=== PATIENT | female | born 1995 | race Caucasian/White ===

== ENCOUNTER 2016-06-19 00:51 | Emergency (ER) | payer OTHER ==
[~2016-06-19] VITALS: Ht 180.3 cm; Wt 112.0 kg
[~2016-06-19 00:51] MED LIST: ACET1TAB40 PO; CEPH-443 PO; LOPE2CAP PO; NO MEDS
[2016-06-19 00:59] VITALS: Ht 180.3 cm; Wt 112.0 kg
[2016-06-19] MEDS ORDERED: SOD CHLORIDE 0.9% 1,000 ML IV STA (01:24)
[2016-06-19] MEDS ORDERED: ONDANSETRON 4 MG INJ IV STA (01:24)
[2016-06-19] MEDS ORDERED: KETOROLAC 30 MG INJ IV STA (01:24)
[2016-06-19] MEDS ORDERED: LOPERAMIDE 2 MG CAP PO ONE (01:30)
[2016-06-19] MEDS ORDERED: ACETAMINOPHEN 325 MG TAB PO ONE (01:30)
--- NOTE | 2016-06-19 01:33 | ERD ---
ER Documentation Chief Complaint Date/Time DATE: 06/19/16 TIME: 01:31 Chief Complaint Diarrhea x2 days. pelvic pain and fever. feeling weak HPI Patient is a 21-year-old female who presents to the ED with nonbloody diarrhea 2 days. She also complains of nonbloody nonbilious emesis today. She states that she has a decrease in appetite but is tolerating fluids. She denies headache or dizziness. Denies fevers or chills at home. Denies recent travel or change in foods. Denies abdominal pain. Denies chest pain, cough or shortness of breath or difficulty breathing. Denies leg pain or swelling. She has not taken any medication for symptoms. No other complaints. ROS All systems reviewed and are negative except as per history of present illness. Medications Home Meds Active Scripts Ondansetron (Ondansetron Odt) 4 Mg Tab.rapdis, 4 MG PO Q6H Y for NAUSEA AND/OR VOMITING, #10 TAB Prov:NEFTALY ZEPEDA PA-C 06/19/16 Acetaminophen* (Tylophen*) 500 Mg Capsule, 1 CAP PO Q6H Y for PAIN AND OR ELEVATED TEMP, #20 CAP Prov:NEFTALY ZEPEDA PA-C 06/19/16 Electrolyte,Oral (Pedialyte) 1,000 Ml Solution, 100 ML PO Q6 Y for DIARRHEA for 30 Days, ML Prov:NEFTALY ZEPEDA PA-C 06/19/16 Cephalexin* (Keflex*) 500 Mg Capsule, 500 MG PO QID for 7 Days, CAP Prov:JESUS GRAFF PA-C 02/18/16 Loperamide Hcl* (Imodium*) 2 Mg Capsule, 2 MG PO .AFTER EA LOOSE BM Y for DIARRHEA, #10 TAB Prov:DEVIN DELGADO MD 05/20/15 Acetaminophen-Codeine* (Acetaminophen-Cod #3*) 300-30 Mg Tab, 1 TAB PO Q4H Y for PAIN, #12 TAB Prov:DEVIN DELGADO MD 05/20/15 Reported Medications [No Meds] No Conflict Check 04/17/13 Allergies Allergies: Coded Allergies: No Known Drug Allergies (Verified Allergy, Mild, 05/20/15) PMhx/Soc Medical and Surgical Hx: pt denies Medical Hx, pt denies Surgical Hx History of Surgery: No Anesthesia Reaction: No Hx Neurological Disorder: No Hx Respiratory Disorders: No Hx Cardiac Disorders: No Hx Psychiatric Problems: No Hx Miscellaneous Medical Probl: Yes (ANEMIA,UTI) Hx Alcohol Use: No Hx Substance Use: No Hx Tobacco Use: No Smoking Status: Never smoker FmHx Family History: No coronary disease, No diabetes, No other Physical Exam Vitals Vital Signs Date Time Temp Pulse Resp B/P Pulse Ox O2 Delivery O2 Flow Rate FiO2 06/19/16 00:59 100.6 110 20 126/72 100 Physical Exam GENERAL: Well-developed, well-nourished female. Appears in no acute distress. HEAD: Normocephalic, atraumatic. EYES: Pupils are equally reactive bilaterally. EOMs grossly intact. No conjunctival erythema. ENT: Moist mucous membranes. No uvula deviation. No kissing tonsils. No exudates. NECK: Supple. No lymphadenopathy or thyromegaly. No meningismus. negative kernig. negative brudinski. LUNG: Clear to auscultation bilaterally. No rhonchi, wheezing, rales or coarse breath sounds. HEART: Regular rate and rhythm. No murmurs, rubs or gallops. ABDOMEN: No scars, ecchymosis or rashes noted. Soft, nontender, and nondistended. Positive bowel sounds in all four quadrants. No rebound tenderness , no guarding. (-) McBurneys point tenderness. No CVA tenderness. BACK: No midline tenderness. Extremities: Equal pulses bilaterally. No peripheral clubbing, cyanosis or edema. No unilateral leg swelling. NEUROLOGIC: Alert and oriented. Moving all four extremities. 5/5 strength in all extremities. Normal speech. Steady gait. moist mucous membranes. SKIN: Normal color. Warm and dry. No rashes or lesions. Capillary refill < 2 seconds Result Diagram: 06/19/1614406/19/16 014 Results 24 hrs Laboratory Tests Test 06/19/16 01:42 06/19/16 01:45 Bedside Urine pH (LAB) 6.0 Bedside Urine Protein (LAB) 1+ Bedside Urine Glucose (UA) Negative Bedside Urine Ketones (LAB) Negative Bedside Urine Blood 3+ Bedside Urine Nitrite (LAB) Negative Bedside Urine Leukocyte Esterase (L Negative White Blood Count 5.110^3/ul Red Blood Count 4.9910^6/ul Hemoglobin 8.4g/dl Hematocrit 30.3% Mean Corpuscular Volume 60.7fl Mean Corpuscular Hemoglobin 16.8pg Mean Corpuscular Hemoglobin Concent 27.7g/dl Red Cell Distribution Width 21.2% Platelet Count 82299^3/UL Mean Platelet Volume fl Neutrophils % 71.5% Lymphocytes % 19.9% Monocytes % 7.4% Eosinophils % 0.8% Basophils % 0.2% Nucleated Red Blood Cells % 0.0/100WBC Neutrophils # 3.710^3/ul Lymphocytes # 1.010^3/ul Monocytes # 0.410^3/ul Eosinophils # 0.010^3/ul Basophils # 0.010^3/ul Nucleated Red Blood Cells # 0.010^3/ul Sodium Level 136mmol/L Potassium Level 3.7mmol/L Chloride Level 105mmol/L Carbon Dioxide Level 22mmol/L Anion Gap 13 Blood Urea Nitrogen 9mg/dl Creatinine 0.75mg/dl Glucose Level 113mg/dl Calcium Level 8.9mg/dl Total Bilirubin 0.8mg/dl Direct Bilirubin 0.00mg/dl Indirect Bilirubin 0.8mg/dl Aspartate Amino Transf (AST/SGOT) 23IU/L Alanine Aminotransferase (ALT/SGPT) 41IU/L Alkaline Phosphatase 110IU/L Total Protein 7.9g/dl Albumin 4.3g/dl Globulin 3.60g/dl Albumin/Globulin Ratio 1.19 Lipase 40U/L Current Medications Medications (Trade) Dose Ordered Sig/Tanisha Route PRN Reason Start Time Stop Time Status Last Admin Dose Admin Sodium Chloride (NS) 1,000 ml @ 1,000 mls/hr Q1H STAT IV 06/19/16 01:24 06/19/16 02:23 DC 06/19/16 01:52 Ondansetron HCl (Zofran Inj) 4 mg ONCE STAT IV 06/19/16 01:24 06/19/16 01:27 DC 06/19/16 01:52 Ketorolac Tromethamine (Toradol) 30 mg ONCE STAT IV 06/19/16 01:24 06/19/16 01:27 DC 06/19/16 01:52 Loperamide HCl (Imodium Cap) 4 mg ONCE ONCE PO 06/19/16 01:30 06/19/16 01:31 DC 06/19/16 01:52 Acetaminophen (Tylenol Tab) 650 mg ONCE ONCE PO 06/19/16 01:30 06/19/16 01:31 DC 06/19/16 01:52 Procedures/MDM ER COURSE: I kept the patient and/or family informed of laboratory and diagnostic imaging results throughout the emergency room course. MEDICATIONS: IV fluids, Zofran, Toradol and Imodium LAB INTERPRETATION: CBC showed no evidence of systemic infection or severe anemia. CMP showed no evidence of electrolyte abnormalities, severe acidosis, alkalosis, renal failure , or liver disease. Lipase showed no evidence of acute pancreatitis. UA showed no evidence of leukocytes, nitrites or hematuria. Urine test was negative. MEDICAL DECISION MAKING: This is a 21-year-old female who presents with diarrhea 2 days. Vital signs were reviewed. Patient has a temperature of 100.9 here in the ED patient is not hypoxic. Patient is not toxic or ill-appearing. Patient did not have focal tenderness on examination. I consulted with Dr. Valles regarding this patient who advised me to order labs and IV fluids. Patient showed mild anemia but not enough for transfusion. Patient felt better after administration of medications. I reexamined and reassessed patient. Dr. Valles reviewed laboratory studies. Patient likely has viral diarrhea. Low suspicion for dehydration. Low suspicion for ACS, AAA, perforated ulcer, bowel obstruction, cholecystitis, choledocholithiasis, cholangitis, pancreatitis, hepatic abscess, appendicitis, diverticulitis, gastroenteritis, hepatitis, peptic ulcer disease, HELLP syndrome. DISCHARGE: At this time, patient is stable for discharge and outpatient management with no new complaints during the ER course. Patient was sent home with Pedialyte, Tylenol and Zofran. Patient will be discharged home with instructions to recheck for new or worsening symptoms such as fever, nausea, weakness, LOC and to follow up with primary care in the next 1-2 days. Patient was advised to return to the ER for any new or worsening symptoms. Plan was discussed and patient and/or family understands and agrees. Home instructions were given. Departure Diagnosis: Primary Impression: Diarrhea Diarrhea type: unspecified type Qualified Code: R19.7 - Diarrhea, unspecified type Condition: Stable NEFTALY ZEPEDA PA-C Jun 19, 2016 01:33
[2016-06-19 01:41] LABS: URINE BLOOD (Dip) POC 3+ (NEGATIVE)
[2016-06-19 02:00] LABS: ADD SCAN DIFF NO
[2016-06-19 02:01] LABS: ABNORMAL IP MESSAGE 1; BASOPHILS % 0.2 % (0.0-2.0); EOSINOPHILS % 0.8 % (0.0-7.0); HEMATOCRIT 30.3 % (37.0-47.0); HEMOGLOBIN 8.4 g/dl (12.0-16.0); LYMPHOCYTES % 19.9 % (15.0-51.0); MEAN CORPUSCULAR HEMOGLOBIN 16.8 pg (29.0-33.0); MEAN CORPUSCULAR HGB CONC 27.7 g/dl (32.0-37.0); MEAN CORPUSCULAR VOLUME 60.7 fl (82.0-101.0); MONOCYTE # 0.4 10^3/ul (0.3-0.9); MONOCYTES % 7.4 % (0.0-11.0); NEUTROPHIL # 3.7 10^3/ul (1.6-7.5); NEUTROPHILS % 71.5 % (39.0-77.0); PLATELET COUNT 386 10^3/UL (140-415); RED BLOOD COUNT 4.99 10^6/ul (4.20-5.40); RED CELL DISTRIBUTION WIDTH 21.2 % (11.5-14.5); WHITE BLOOD COUNT 5.1 10^3/ul (4.8-10.8)
[2016-06-19 02:23] LABS: ALBUMIN 4.3 g/dl (3.3-4.9); ALBUMIN/GLOBULIN RATIO 1.19; BILIRUBIN,INDIRECT 0.8 mg/dl (0-1.1); BILIRUBIN,TOTAL 0.8 mg/dl (0.2-1.3); CALCIUM 8.9 mg/dl (8.4-10.2); CREATININE 0.75 mg/dl (0.44-1.00); POTASSIUM 3.7 mmol/L (3.5-5.1); TOTAL PROTEIN 7.9 g/dl (6.1-8.1)
[2016-06-19] MEDS ORDERED: ELEC100080 PO (03:02)
[2016-06-19] MEDS ORDERED: ACET500C5 PO (03:03)
[2016-06-19] MEDS ORDERED: ONDA4TAB14 PO (03:03)
== END 2016-06-19 03:28 | disposition home or self-care (01) ==
LOC: FTE 00:51
DX: R19.7 Diarrhea, unspecified (principal); R10.2 Pelvic and perineal pain; R11.10 Vomiting, unspecified
CPT/HCPCS: 36415; 80053; 81003; 83690; 85025; 96374; 96375; J1885; J2405; J7030; Z7502; Z7610

== ENCOUNTER 2016-09-20 01:21 | Emergency (ER) | payer OTHER ==
[~2016-09-20] VITALS: Ht 177.8 cm; Wt 116.0 kg
[~2016-09-20 01:21] MED LIST changes: +ACET500C5 PO; +ELEC100080 PO; +ONDA4TAB14 PO
[2016-09-20 01:28] VITALS: Ht 177.8 cm; Wt 116.0 kg
[2016-09-20] MEDS ORDERED: TYL500 PO (03:08)
[2016-09-20] MEDS ORDERED: MED4DP PO (03:09)
--- NOTE | 2016-09-20 03:13 | ERD ---
ER Documentation Chief Complaint Date/Time DATE: 09/20/16 TIME: 03:11 Chief Complaint pt reports ST for 1 week HPI This is a 21-year-old female presents here with a sore throat for the last week. Patient states that sore throat is worse whenever she swallows. She denies any fevers or chills. She denies any cough or cold symptoms. Patient denies any chest pain or shortness of breath. There are no sick contacts at home. ROS 12 point review of systems was done, all negative except per HPI. Medications Home Meds Active Scripts Methylprednisolone* (Medrol* DOSE PACK) 4 Mg/Dose-Pack Tab.ds.pk, 4 MG PO . DIRECTED for 6 Days, PACKET Prov:LUPE LE 09/20/16 Acetaminophen* (Tylenol*) 500 Mg Tab, 1000 MG PO Q8H Y for PAIN AND OR ELEVATED TEMP for 3 Days, TAB Prov:LUPE LE 09/20/16 Ondansetron (Ondansetron Odt) 4 Mg Tab.rapdis, 4 MG PO Q6H Y for NAUSEA AND/OR VOMITING, #10 TAB Prov:NEFTALY ZEPEDAC 06/19/16 Acetaminophen* (Tylophen*) 500 Mg Capsule, 1 CAP PO Q6H Y for PAIN AND OR ELEVATED TEMP, #20 CAP Prov:NEFTALY ZEPEDAC 06/19/16 Electrolyte,Oral (Pedialyte) 1,000 Ml Solution, 100 ML PO Q6 Y for DIARRHEA for 30 Days, ML Prov:NEFTALY ZEPEDAC 06/19/16 Cephalexin* (Keflex*) 500 Mg Capsule, 500 MG PO QID for 7 Days, CAP Prov:JESUS GRAFFC 02/18/16 Loperamide Hcl* (Imodium*) 2 Mg Capsule, 2 MG PO .AFTER EA LOOSE BM Y for DIARRHEA, #10 TAB Prov:DEVIN DELGADO MD 05/20/15 Acetaminophen-Codeine* (Acetaminophen-Cod #3*) 300-30 Mg Tab, 1 TAB PO Q4H Y for PAIN, #12 TAB Prov:DEVIN DELGADO MD 05/20/15 Reported Medications [No Meds] No Conflict Check 04/17/13 Allergies Allergies: Coded Allergies: No Known Drug Allergies (Verified Allergy, Mild, 09/20/16) PMhx/Soc Medical and Surgical Hx: pt denies Medical Hx, pt denies Surgical Hx History of Surgery: No Anesthesia Reaction: No Hx Neurological Disorder: No Hx Respiratory Disorders: No Hx Cardiac Disorders: No Hx Psychiatric Problems: No Hx Miscellaneous Medical Probl: Yes (ANEMIA,UTI) Hx Alcohol Use: No Hx Substance Use: No Hx Tobacco Use: No Smoking Status: Never smoker Physical Exam Vitals Vital Signs Date Time Temp Pulse Resp B/P Pulse Ox O2 Delivery O2 Flow Rate FiO2 09/20/16 01:28 99.3 93 18 131/68 99 Physical Exam GENERAL: The patient is well-developed, well-nourished, in no acute distress. NECK: Cervical spine is non tender with no step off. Supple, no nuchal rigidity HEENT: Atraumatic. Pupils equal, round and reactive to light. Extraocular muscles are grossly intact. Conjunctivae pink, no discharge. Bilateral tympanic membranes are clear with no evidence of erythema, effusion or dulling of the light reflex. Tonsilar erythema with no exudates or uvular deviation. Clear rhinorrhea. RESPIRATORY: Clear to auscultation bilaterally. There are no rales, wheezes or rhonchi. HEART: Regular rate and rhythm. No murmurs, clicks, rubs or gallops. EXTREMITIES: No clubbing or cyanosis. Full range of motion. Grossly neurovascularly intact. NEUROLOGIC: Alert and oriented. Cranial nerves II through XII are intact. SKIN: There is no rash. The skin is warm and dry. Procedures/MDM This is a 21-year-old female presents to the ER with a sore throat, at this time there is no evidence of exudates, uvular deviation, kissing tonsils. This is likely viral in etiology. Suspicion for retropharyngeal or peritonsillar abscess is low. Patient will be sent home with Tylenol with Medrol Dosepak. Patient is afebrile and extremely well-appearing in no respiratory distress. Patient is to follow-up with her primary care doctor within 1-2 days patient to ER sooner if symptoms worsen. My medical decision making shared with the patient she understands and agrees with plan. Departure Diagnosis: Primary Impression: Pharyngitis Condition: Stable Patient Instructions: Pharyngitis, Viral Additional Instructions: Call your primary care doctor TOMORROW for an appointment during the next 1-2 days.See the doctor sooner or return here if your condition worsens before your appointment time. LUPE LE Sep 20, 2016 03:13
== END 2016-09-20 03:31 | disposition home or self-care (01) ==
LOC: FTE 01:21
DX: J02.9 Acute pharyngitis, unspecified (principal)
CPT/HCPCS: 99283

== ENCOUNTER 2017-04-20 17:55 | Emergency (ER) | END 2017-04-20 21:25 | disposition home or self-care (01) ==

== ENCOUNTER 2018-02-26 10:56 | Emergency (ER) | END 2018-02-26 13:33 | disposition home or self-care (01) ==

== ENCOUNTER 2018-04-27 04:52 | Emergency (ER) | payer OTHER ==
[~2018-04-27] VITALS: Ht 177.8 cm; Wt 113.6 kg
[~2018-04-27 04:52] MED LIST changes: +ALPR0.5T PO; +CIPR500S2 PO; +MED4DP PO; +METH750T93 PO; +NAPR-688 PO; +NITR-58 PO; +TYL500 PO
[2018-04-27 04:55] VITALS: Ht 177.8 cm; Wt 113.6 kg
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
[2018-04-27] MEDS ORDERED: IBUP-1561 PO (07:14)
[2018-04-27] MEDS ORDERED: ACET325T33 PO (07:14)
== END 2018-04-27 07:26 | disposition home or self-care (01) ==
LOC: FTE 04:52
DX: S39.91XA Unspecified injury of abdomen, initial encounter (principal); R07.9 Chest pain, unspecified; W50.1XXA Accidental kick by another person, initial encounter; Y92.89 Other specified places as the place of occurrence of the external cause
CPT/HCPCS: 71046; 80053; 81001; 81025; 82150; 83690; 85025; Z7502; 81003